=== PATIENT | female | born 1990 | race Two or more races ===

== ENCOUNTER 2024-12-20 14:49 | Emergency (ER) | payer OTHER ==
[~2024-12-20] VITALS: Ht 170.2 cm; Wt 108.9 kg
[2024-12-20] MEDS ORDERED: ATOMOXETINE HCL40 MG PO (16:02)
[2024-12-20] MEDS ORDERED: FOLIC ACID20 MG (16:03)
[2024-12-20] MEDS ORDERED: CELEBREX200MG PO (16:03)
[2024-12-20] MEDS ORDERED: GRALISE600 MG (16:03)
[2024-12-20] MEDS ORDERED: KETOROLAC TROMETHAMINE 60 MG VIAL IM ONE ×2 (16:30→16:31)
[2024-12-20] MEDS ORDERED: DEXAMETHASONE SODIUM PHOSPHATE 4 MG/ML VIAL IM ONE (16:30)
[2024-12-20] MEDS ORDERED: DEXAMETHASONE SODIUM PHOSPHATE 4 MG/ML VIAL ONE (16:31)
[2024-12-20 16:49] LABS: BASO % 0.5 % (0.1-1.2); EOS # 0.26 (0.04-0.54); EOS % 2.4 % (0.7-7.0); LYMPH # 2.85 (1.18-3.74); LYMPH % 26.1 % (19.3-53.1); MEAN PLATELET VOLUME 9.80 fl (9.4-12.4); MONO # 0.79 (0.24-0.82); MONO % 7.2 % (4.7-12.5); NEUT # 6.96 (1.56-6.13); NEUT % 63.6 % (34.0-71.1); RED CELL DISTRIBUTION WIDTH 12.0 % (11.6-14.4)
[2024-12-20 17:18] LABS: ALT/SGPT 31.0 U/L (12-78); AST/SGOT 16.0 U/L (15-37); BILIRUBIN TOTAL 0.42 mg/dL (0.3-1.2); BUN CREA RATIO 17.0 (7.0-25.0); CREATININE SERUM 0.76 mg/dL (0.55-1.02); GFR 87.11; GLOBULINA 3.5 G/DL (2.4-3.5); GLUCOSE FASTING 96.0 mg/dL (65-100); OSMOLALITY SERUM 283.0 MOSM/KG (275-295)
[2024-12-20] MEDS ORDERED: MICONAZOLE 3200 MG VAG (20:11)
[2024-12-20] MEDS ORDERED: FLUCONAZOLE 150 MG TABLET PO ONE (20:15)
[2024-12-20 20:36] LABS: URINE APPEARANCE Clear; URINE BILIRRUBIN Negative (NEGATIVE); URINE BLOOD Negative; URINE COLOR Yellow; URINE GLUCOSE Negative (NEGATIVE); URINE KETONE Trace (NEGATIVE); URINE LEUKOCYTE Moderate; URINE NITRATE Negative; URINE PROTEIN Negative (NEGATIVE); URINE UROBILINOGEN 0.2 E.U./dl
[2024-12-20 20:37] LABS: URINE BACTERIA 244.7 uL (0.0-1933); URINE EPITHELIAL CELLS 13.0 uL (0.0-38.8); URINE RBC 3.8 uL (0.0-20.8); URINE WBC 26.7 uL (0.0-23.2)
[2024-12-20 20:42] LABS: URINE CAST 0.00 uL (0.0-1.40)
== END 2024-12-20 21:19 | disposition home or self-care (01) ==
LOC: ER 14:49
DX: B37.31 Acute candidiasis of vulva and vagina (principal); R10.20 Pelvic and perineal pain unspecified side; N93.9 Abnormal uterine and vaginal bleeding, unspecified; Z91.0110 Allergy to milk products, unspecified